=== PATIENT | female | born 1980 | race Caucasian/White ===

== ENCOUNTER 2019-10-28 00:15 | Emergency (ER) | payer OTHER, SELFPAY ==
--- NOTE | ~2019-10-28 | CT_ITS ---
EXAMINATION: CT abdomen pelvis w con DATE: 10/28/2019 02:42 INDICATION: Right mid abdominal pain TECHNIQUE: Computed tomography (CT) of the abdomen and pelvis was performed with 100 mL Omnipaque-350 intravenous contrast. Automated exposure control and iterative reconstruction technique were employe d. The dose-length product was 898.90 mGy-cm. COMPARISON: 12/17/2018 FINDINGS: Mild atelectasis at the inferomedial aspect of the lingula and right middle lobe. Visualized inferior heart is normal. No pericardial or pleural effusion. Cholecystectomy clips the gallbladder fossa. Fo mathew hepatic steatosis at the ligamentum teres. Spleen, pancreas, bilateral adrenal glands and kidneys are normal. Bowels including the appendix are normal. Bladder, retroverted uterus and right ovary ar e normal. Peripheral enhancing rim at a collapsed 1.8 cm corpus luteum cyst in the left ovary. Very s mall amount of likely physiologic free fluid in the cul-de-sac. No pathologically enlarged abdominal or pelvic lymphadenopathy. Severe disc height loss with vacuum phenomena at L5-S1. Mild spondylosis i n the more cephalad lumbar and lower thoracic spine. Chronic mild anterior wedging at T10-T12. IMPRESSION: 1. No acute intra-abdominal/pelvic process. Specifically appendix is normal. Reviewed, dictated and finalized at location A. MAKER
[2019-10-28 01:27] VITALS: BP 134/94; PULSE 81; RESP 16; TEMP 36.7; O2SAT 100
[2019-10-28 01:42] LABS: Basophils Absolute Auto 0.1 K/mm3 (0.0-0.1); Basophils Percent Auto 0.4 % (0.2-1.2); Eosinophils Absolute Auto 0.2 K/mm3 (0-0.3); Eosinophils Percent Auto 1.7 % (0-4.4); Hematocrit 37.9 % (37.0-47.0); Hemoglobin 12.8 g/dL (12.0-15.0); Immature Granulocyte Absolute 0.06 K/mm3 (0.00-0.031); Immature Granulocyte Percent A 0.4 % (0-0.5); Lymphocytes Absolute Auto 4.36 K/mm3 (0.9-3.2); Lymphocytes Percent Auto 31.1 % (18.3-44.2); Mean Corpuscular HGB Conc 33.8 g/dl (32-36); Mean Corpuscular Volume 85.9 fl (80-100); Mean Platelet Volume 10.8 fl (7.4-10.4); Monocytes Absolute Auto 1.2 K/mm3 (0.1-0.6); Monocytes Percent Auto 8.2 % (2.6-8.5); Neutrophils Absolute Auto 8.2 K/mm3 (1.3-6.7); Neutrophils Percent Auto 58.2 % (45.5-73.1); Platelet Count Result 276 k/mm3 (150-375); Red Blood Count 4.41 M/mm3 (4.2-5.4)
[2019-10-28 01:45] LABS: Add Urine Microscopic? NO; Appearance Urine Clear (Clear); Bilirubin Urine Negative (Negative); Blood Urine Negative (Negative); Color Urine Yellow (Yellow); Glucose Urine UA Negative (Negative); Ketones Urine Negative (Negative); Leukocyte Esterase Ur Negative LEU/UL (Negative); Mucus Urine Rare /lpf; Nitrate Urine Negative (Negative); Protein Urine Negative (Negative); RBC Urine 0-2 /hpf (0-2); Squamous Epithelial Cell Urine Moderate /hpf (Few); Urobilinogen Urine Negative mg/dL (<2.0); WBC Urine 0-3 /hpf
[2019-10-28 01:54] LABS: Alanine Aminotransferase 16 U/L (4-35); Albumin Level 4.2 g/dL (3.5-5.1); Alkaline Phosphatase 70 U/L (38-126); Aspartate Amino Transferase 17 U/L (14-36); Bilirubin,Total 0.2 mg/dL (0.2-1.3); Blood Urea Nitrogen 15 mg/dL (7-17); Carbon Dioxide 22 mmol/L (22-30); Chloride 102 mmol/L (98-107); Estimated Glomerular Filt Rate > 60; Glucose 90 mg/dL (65-105); Lipase 219 U/L (23-300); Potassium 4.1 mmol/L (3.4-5.0); Sodium 136 mmol/L (137-145)
--- NOTE | 2019-10-28 02:06 | ED.ABDPAIN ---
HPI - Abdominal Pain General Chief Complaint: Abdominal Pain Stated Complaint: abd pain; ?hernia; N/V/D Time Seen by Provider: 10/28/19 02:02 Source: patient and RN notes reviewed Mode of arrival: ambulatory Limitations: no limitations History of Present Illness HPI narrative: A 38 y/o female presents to the ED with worsening, sharp, RUQ ABD pain for the past 2 days. She reports associated N/V/D. She notes that she has noticed a knot sticking out of her RUQ for the past month. She also notes that bending over aggravates the pain and denies anything alleviating the pain. She also denies any constipation, dysuria, hematuria, urinary frequency, urinary retention, fevers, or chills. MD elicited complaint: abdominal pain Pertinent past history: none Onset (ago): day(s) (2) Pain Consistency: other (worsening) Location: RUQ Quality: sharp Exacerbating factors: other (bending over) Relieving factors: nothing Associated symptoms: nausea, vomiting, diarrhea and other ( knot sticking out of her RUQ) Related Data Allergies Allergy/AdvReac Type Severity Reaction Status Date / Time No Known Allergies Allergy Mild Verified 12/07/12 10:21 Review of Systems Review of Systems: All systems reviewed & are unremarkable except as noted in HPI and below Constitutional: Constitutional: Denies chills and Denies fever(s) Gastrointestinal: Gastrointestinal: Reports abdominal pain (RUQ), Denies constipation, Reports diarrhea, Reports nausea, Reports vomiting and Reports other ( knot sticking out of her RUQ) Genitourinary: Genitourinary: Denies hematuria, Denies nocturia, Denies dysuria and Denies other (urinary retention) PMFSH Past Medical History Medical History (Updated 10/28/19 @ 03:48 by Misha Ohara MD) Chronic back pain Surgical History Surgical History (Updated 10/28/19 @ 02:30 by Edson Moran) History of cholecystectomy Hx of right knee surgery Hx of tubal ligation Social History Social History (Updated 10/28/19 @ 02:30 by Edson Moran) Smoking packs per day: 0.5 Smoking cigarettes per day: 10.0 Smoking status: Current every day smoker Tobacco type: cigarettes Exam Narrative: Exam Narrative: GENERAL: Well-appearing, well-nourished, and in no acute distress. HEAD: Normocephalic, atraumatic. ENT: Mucous membranes moist. CHEST: Clear to auscultation. No respiratory distress. HEART: Regular rate and rhythm. Normal peripheral pulses. ABDOMEN: Soft, mild mid abdominal tenderness in the right side without guarding, no palpable abdominal wall defect, nondistended. EXTREMITIES: Normal range of motion. No edema. SKIN: Warm, dry, no rash. NEURO: Alert and oriented x3. Course Course Emergency Course: Pain improved, informed of results, d/c. Vital Signs Vital signs: Vital Signs Temperature 98.0 F 10/28/19 01:27 Pulse Rate 81 10/28/19 01:27 Respiratory Rate 16 10/28/19 01:27 Blood Pressure 134/94 H 10/28/19 01:27 Pulse Oximetry 100 10/28/19 01:27 Temperature 98.0 F 10/28/19 01:27 Pulse Rate 81 10/28/19 01:27 Respiratory Rate 16 10/28/19 01:27 Blood Pressure 134/94 H 10/28/19 01:27 Pulse Oximetry 100 10/28/19 01:27 MDM - Abdominal Pain Lab Data Result diagrams: 10/28/19 01:30 10/28/19 01:30 Labs: Lab Results 10/28/19 10/28/19 10/28/19 Range/Units 01:30 01:30 01:30 WBC 14.0 H (4.5-10.0) K/mm3 RBC 4.41 (4.2-5.4) M/mm3 Hgb 12.8 (12.0-15.0) g/dL Hct 37.9 (37.0-47.0) % MCV 85.9 (80-100) fl MCH 29.0 (26-34) pg MCHC 33.8 (32-36) g/dl RDW 13.0 (11.5-14.5) % Plt Count 276 (150-375) k/mm3 MPV 10.8 H (7.4-10.4) fl Immature Gran % (Auto) 0.4 (0-0.5) % Neut % (Auto) 58.2 (45.5-73.1) % Lymph % (Auto) 31.1 (18.3-44.2) % [place] % (Auto) 8.2 (2.6-8.5) % Eos % (Auto) 1.7 (0-4.4) % Baso % (Auto) 0.4 (0.2-1.2) % Lymph # (Auto) 4.36 H (0.9-3.2) K/mm3 [place] # (Auto) 1.2
[2019-10-28] MEDS: MORPHINE SULFATE 4 MG/ML INJ IV PUSH (02:23)
[2019-10-28] MEDS: ONDANSETRON INJ 4 MG/2 ML VIAL IV PUSH (02:23)
[2019-10-28] MEDS: SODIUM CHLORIDE 0.9% IV 1,000 ML 999 ML IV CONT (02:23)
[2019-10-28 03:00] VITALS: BP 138/85; PULSE 85; RESP 16; O2SAT 100
== END 2019-10-28 04:08 | disposition home or self-care (01) ==
PROVIDERS: Emergency Provider Emergency Medicine
DX: R10.11 Right upper quadrant pain (principal); F17.210 Nicotine dependence, cigarettes, uncomplicated
CPT/HCPCS: 36415; 74177; 80053; 81003; 81025; 83690; 85025; 96361; 96374; 96375; 99284; J2270; J2405; J7030; Q9967

== ENCOUNTER 2019-11-01 16:34 | Emergency (ER) | payer OTHER, SELFPAY ==
--- NOTE | ~2019-11-01 | CT_ITS ---
EXAMINATION: CT abdomen pelvis w con DATE: 11/01/2019 19:46 INDICATION: Severe right upper abdominal pain. History of cholecystectomy. TECHNIQUE: Computed tomography (CT) of the abdomen and pelvis was performed with 100 cc Omnipaque 350 intravenous contrast. The dose-length product was 798.96 mGy-cm. Automated exposure control and iterative reconstruction technique were employed. COMPARISON: CT dated 10/28/2019 FINDINGS: Lung bases 4 mm left lower lobe nodule. Heart size normal. No significant pleural or perica rdial effusion. Status post cholecystectomy with expected prominence of the common bile duct. The liver, spleen, pancreas, adrenal glands and kidneys are unremarkable. Nonobstructive bowel gas pa ttern. Normal appendix. No abnormal pelvic masses or fluid collections. No free air or free fluid. No significant vascular abnormality. No lymphadenopathy. Moderate spondylosis at L5-S1. Chronic mild an terior wedge shaped appearance to T10-T12. Retroverted uterus. IMPRESSION: 1. No acute abdominal abnormality. 2: 4 mm left lower lobe nodule, likely benign. Consider follow-up CT at 12 months. Reviewed, dictated and finalized at location A. MAKER HELPER IMPRESSION: 1. No acute abdominal abnormality. 2: 4 mm left lower lobe nodule, likely benign. Consider follow-up CT at 12 mon ths.
--- NOTE | ~2019-11-01 | XR_ITS ---
EXAMINATION: XR chest 2V 11/01/2019 19:49 INDICATION: Shortness of breath, nausea and dizziness. PROCEDURE: 2 view chest COMPARISON: No prior studies for comparison. FINDINGS: The lungs are clear. Mild cardiomegaly. There are no pleural effusions. There is no pneumo thorax suspected. IMPRESSION: 1: NO ACUTE CARDIOPULMONARY DISEASE. Reviewed, dictated and finalized at location A. OLOGIC ENGINEER
[2019-11-01 16:43] VITALS: BP 125/86; PULSE 81; RESP 19; TEMP 37; O2SAT 100
--- NOTE | 2019-11-01 16:50 | PC.NURSE ---
PT LEFT TRIAGE BAY AND INFORMED RN THAT SHE WOULD BE OUTSIDE SMOKING IF SHE WAS UP NEXT FOR A ROOM.
[2019-11-01 16:57] LABS: Basophils Absolute Auto 0.1 K/mm3 (0.0-0.1); Basophils Percent Auto 0.4 % (0.2-1.2); Eosinophils Absolute Auto 0.2 K/mm3 (0-0.3); Eosinophils Percent Auto 1.5 % (0-4.4); Hematocrit 41.2 % (37.0-47.0); Hemoglobin 13.7 g/dL (12.0-15.0); Immature Granulocyte Absolute 0.07 K/mm3 (0.00-0.031); Immature Granulocyte Percent A 0.5 % (0-0.5); Lymphocytes Absolute Auto 3.48 K/mm3 (0.9-3.2); Lymphocytes Percent Auto 25.4 % (18.3-44.2); Mean Corpuscular HGB Conc 33.3 g/dl (32-36); Mean Corpuscular Hemoglobin 28.8 pg (26-34); Mean Corpuscular Volume 86.7 fl (80-100); Mean Platelet Volume 10.4 fl (7.4-10.4); Monocytes Absolute Auto 0.8 K/mm3 (0.1-0.6); Monocytes Percent Auto 5.8 % (2.6-8.5); Neutrophils Absolute Auto 9.1 K/mm3 (1.3-6.7); Neutrophils Percent Auto 66.4 % (45.5-73.1); Platelet Count Result 321 k/mm3 (150-375); Red Blood Count 4.75 M/mm3 (4.2-5.4); Red Cell Distribution Width 12.8 % (11.5-14.5); White Blood Count 13.7 K/mm3 (4.5-10.0)
[2019-11-01 17:00] LABS: Add Urine Microscopic? NO; Appearance Urine Clear (Clear); Bilirubin Urine Negative (Negative); Blood Urine Negative (Negative); Color Urine Yellow (Yellow); Glucose Urine UA Negative (Negative); Ketones Urine Negative (Negative); Leukocyte Esterase Ur Negative LEU/UL (Negative); Nitrate Urine Negative (Negative); Protein Urine Negative (Negative); Urobilinogen Urine Negative mg/dL (<2.0)
[2019-11-01 17:12] LABS: Alanine Aminotransferase 18 U/L (4-35); Albumin Level 4.6 g/dL (3.5-5.1); Alkaline Phosphatase 76 U/L (38-126); Aspartate Amino Transferase 19 U/L (14-36); Bilirubin,Total 0.3 mg/dL (0.2-1.3); Blood Urea Nitrogen 11 mg/dL (7-17); Carbon Dioxide 27 mmol/L (22-30); Chloride 100 mmol/L (98-107); Estimated Glomerular Filt Rate > 60; Glucose 126 mg/dL (65-105); Lipase 177 U/L (23-300); Potassium 3.5 mmol/L (3.4-5.0); Sodium 138 mmol/L (137-145)
--- NOTE | 2019-11-01 18:59 | ED.ABDPAIN ---
HPI - Abdominal Pain General Chief Complaint: Abdominal Pain Stated Complaint: Abd pain, sent from pcp Time Seen by Provider: 11/01/19 18:25 Source: patient Mode of arrival: ambulatory Limitations: no limitations History of Present Illness HPI narrative: A 38 y/o female presents to the ED with c/o intermittent epigastric ABD pain that has worsened since onset. Pt states that she started to experience back pain 1.5 months ago that then progressed to her ABD. Pt was seen in the ED on 10/28/2019 for the same complaints and was d/c home after a normal ABD CT scan. Pt followed up with her PCP, Dr. Nguyen, today and he advised her to present to the ED for further evaluation for leukocytosis. Pt also c/o midsternal CP for 2 days. Pt notes that she had a cholecystectomy 1 month ago. Pt has not followed up with a GI specialist. She reports SOB for 2 days, ABD bloating, N/V/D, and smoking 0.5 PPD, but denies sick contacts. Pain Consistency: intermittent Location: epigastric Related Data Allergies Allergy/AdvReac Type Severity Reaction Status Date / Time No Known Allergies Allergy Mild Verified 11/01/19 16:59 Review of Systems Review of Systems: Narrative: CONSTITUTIONAL: Denies fever, chills, or sweats. CARDIOVASCULAR: Reports midsternal CP; Denies palpitations, or edema. RESPIRATORY: Reports SOB; Denies cough GASTROINTESTINAL: Reports intermittent epigastric ABD pain, ABD bloating, nausea, vomiting, diarrhea. MUSCULOSKELETAL: Reports back pain; Denies joint pain, or myalgia. [facility] Past Medical History Medical History Chronic back pain Surgical History Surgical History History of cholecystectomy Hx of right knee surgery Hx of tubal ligation Family History Family History Mother Family history of bipolar disorder Family history of irritable bowel syndrome Father Hypertension Family history of gastrointestinal disorder Social History Social History Smoking packs per day: 0.5 Smoking cigarettes per day: 10.0 Smoking status: Current every day smoker Tobacco type: cigarettes Alcohol intake: current Comments PCP: Dr. Nguyen Exam Narrative: Exam Narrative: GENERAL: Well-appearing, well-nourished, and in no acute distress. HEAD: Normocephalic, atraumatic. NECK: Supple. CHEST: Clear to auscultation. No respiratory distress. No chest wall tenderness. HEART: Regular rate and rhythm. No murmur heard. Normal peripheral pulses. ABDOMEN: Soft, diffuse ABD tenderness greatest in the RUQ and RLQ, nondistended, normal active bowel sounds. EXTREMITIES: Normal range of motion. No edema. SKIN: Warm, dry, no rash. NEURO: No focal deficits. Alert and oriented Course Course Emergency Course: Patient presenting for evaluation of abdominal pain. At the time of initial assessment, ABCs are intact and vital signs are stable. Patient is well-appearing with a nondistended abdomen on exam, but she does have some right upper and right lower quadrant tenderness. Laboratory results are reassuring. Patient does have a mild leukocytosis, but upon review of laboratory test at this facility, she has had this intermittently in the past. Patient without any severe electrolyte abnormalities. No UTI. No evidence of pancreatitis on laboratory testing or imaging. In fact, imaging is very benign. Patient would likely benefit from GI follow-up. This may be gastritis or an ulcer of some point. As for the patient's chest pain which is been present over 2 days and is mild per patient, it does not seem to be anginal in nature. Her chest x-ray and troponin are normal, patient is within an ACS window. Regarding this, I feel patient is safe to follow-up with her primary care provider given her low heart score. Will start patient on PPI, patient is already established
--- NOTE | 2019-11-01 19:08 | ECG_ITS ---
Measurements Intervals [place] Rate: 71 P: AR: 0 QRS: 179 QRSD: 92 T: 125 QT: 395 QTc: 431 Interpretive Statements SINUS RHYTHM LIMB LEAD REVERSAL DELAYED PRECORDIAL R/S TRANSITION BORDERLINE ECG Electronically Signed On 11-01-2019 21:12:05 LAWN MOWER REPAIRER by Navarro Eastman D.O.
[2019-11-01] MEDS: BELLADONNA ALK/PHENOB ELIX 10 ML, MAG HYDROX/ALUMINUM HYD/SIMETH 30 ML, LIDOCAINE HCL 2... PO (19:19)
[2019-11-01] MEDS: MORPHINE SULFATE 4 MG/ML INJ IV PUSH (19:20)
[2019-11-01] MEDS: ONDANSETRON INJ 4 MG/2 ML VIAL IV PUSH (19:21)
[2019-11-01 19:31] LABS: Prothrombin Time 12.7 Seconds (11.1-14.7)
[2019-11-01 19:32] LABS: Partial Thromboplastin Time 32.6 SECONDS (22.3-36.8)
[2019-11-01 20:08] LABS: Troponin I < 0.012 ng/mL (0.000-0.034)
[2019-11-01 20:20] VITALS: BP 120/75; PULSE 79; RESP 18; O2SAT 100
== END 2019-11-01 21:23 | disposition home or self-care (01) ==
PROVIDERS: Emergency Medicine; Emergency Provider Emergency Medicine
DX: K29.70 Gastritis, unspecified, without bleeding (principal); R91.1 Solitary pulmonary nodule; F17.210 Nicotine dependence, cigarettes, uncomplicated; R94.31 Abnormal electrocardiogram [ECG] [EKG]
CPT/HCPCS: 36415; 71046; 74177; 80053; 81003; 81025; 83690; 84484; 85025; 85610; 85730; 93005; 96374; 96375; 99284; A9270; J2270; J2405; Q9967

== ENCOUNTER 2020-09-02 11:40 | Emergency (ER) | payer OTHER, SELFPAY ==
--- NOTE | ~2020-09-02 | XR_ITS ---
EXAMINATION: XR mandible min 4V INDICATION: Left jaw pain after fall TECHNIQUE: Five views of the mandible are obtained. COMPARISON: None available FINDINGS: Bone alignment is normal. There is no fracture. The visualized paranasal sinuses are normal appearance. The soft tissues are unremarkable. IMPRESSION: 1. No displaced fracture identified. Reviewed, dictated and finalized at location A. RICT SALES LEADER
--- NOTE | ~2020-09-02 | CT_ITS ---
EXAMINATION: CT brain wo con EXAM DATE: 09/02/2020 13:25 INDICATION: Fall. Head injury. TECHNIQUE: Spiral CT of the head was performed without contrast. Axial, coronal and sagittal images were reviewed. The dose-length product (DLP) for this examination was 605.33 mGy-cm. The exposure w as tailored according to patient size, and iterative reconstruction (ASIR) was used as additional dos e reduction technique. There is no prior study for comparison. FINDINGS: There is no acute intraparenchymal hemorrhage. No evidence of intraparenchymal brain mass lesion. No evidence of acute infarction. There is no mass effect or midline shift. The ventricles are normal in size. There are no extra-axial collections. There are no acute calvarial fractures. T he orbits are unremarkable. Soft tissue is unremarkable. The visualized sinuses and mastoid air ivy ls are well aerated. IMPRESSION: 1. No acute intracranial findings. Reviewed, dictated and finalized at location B. DELIVERER
[2020-09-02 12:14] VITALS: BP 146/95; PULSE 85; RESP 18; TEMP 36.5; O2SAT 100
[2020-09-02] MEDS: ONDANSETRON HCL ODT 4 MG TABLET PO (12:43)
[2020-09-02] MEDS: HYDROcodone/acetaminophen (*CRX) 5-325 MG TABLET 1 TAB PO (12:44)
--- NOTE | 2020-09-02 15:06 | ED.GENADULT ---
HPI - General Adult General Chief complaint: Unspecified Stated complaint: JAW FRACTURE Time Seen by Provider: 09/02/20 12:32 History of Present Illness HPI narrative: Patient is a 39-year-old female who presents ER with concerns of jaw fracture and head injury. Patient was seen at an urgent care and sent here after having out patient x-ray. She is unable to bring copies of the images. She reports she got up to urinate last night and then fell down some steps. She is unsure if she lost consciousness. She has had soreness of her jaw and she has been feeling nauseous since then. No fevers or chills or sweats. No focal numbness or weakness in arm or leg. No blood thinners. Related Data Allergies Allergy/AdvReac Type Severity Reaction Status Date / Time No Known Allergies Allergy Mild Verified 09/02/20 12:17 Review of Systems Review of Systems: All systems reviewed & are unremarkable except as noted in HPI and below Constitutional: Constitutional: Denies chills, Denies fatigue and Denies fever(s) Eyes: Eyes: Denies blurry vision and Denies diplopia ENT: Comments: No change in hearing. Gastrointestinal: Gastrointestinal: Reports nausea and Denies vomiting PMFSH Past Medical History Medical History (Updated 09/02/20 @ 15:10 by Misha Ohara MD) Chronic back pain Surgical History Surgical History History of cholecystectomy Hx of right knee surgery Hx of tubal ligation Family History Family History Mother Family history of bipolar disorder Family history of irritable bowel syndrome Father Hypertension Family history of gastrointestinal disorder Social History Social History Smoking packs per day: 0.5 Smoking cigarettes per day: 10.0 Smoking status: Current every day smoker Tobacco type: cigarettes Alcohol intake: current Exam Narrative: Exam Narrative: GENERAL: Well-appearing, well-nourished, and in no acute distress. HEAD: Normocephalic, atraumatic. EYES: PERRL and EOMI. ENT: Mucous membranes moist. TMs normal bilaterally. No bleeding intraorally. Patient's teeth align normally. CHEST: Clear to auscultation. No respiratory distress. HEART: Regular rate and rhythm. Normal peripheral pulses. EXTREMITIES: Normal range of motion. No edema. NEURO: Alert and oriented x3. PSYCH: Normal mood and affect. Course Course Emergency Course: Patient informed of results. Discharge home. Vital Signs Vital signs: Vital Signs Temperature 97.7 F 09/02/20 12:14 Pulse Rate 85 09/02/20 12:14 Respiratory Rate 18 09/02/20 12:14 Blood Pressure 146/95 H 09/02/20 12:14 Pulse Oximetry 100 09/02/20 12:14 Temperature 97.7 F 09/02/20 12:14 Pulse Rate 85 09/02/20 12:14 Respiratory Rate 18 09/02/20 12:14 Blood Pressure 146/95 H 09/02/20 12:14 Pulse Oximetry 100 09/02/20 12:14 Medical Decision Making Vital Signs Vital Signs: Vital Signs Temperature 97.7 F 09/02/20 12:14 Pulse Rate 85 09/02/20 12:14 Respiratory Rate 18 09/02/20 12:14 Blood Pressure 146/95 H 09/02/20 12:14 Pulse Oximetry 100 09/02/20 12:14 Temperature 97.7 F 09/02/20 12:14 Pulse Rate 85 09/02/20 12:14 Respiratory Rate 18 09/02/20 12:14 Blood Pressure 146/95 H 09/02/20 12:14 Pulse Oximetry 100 09/02/20 12:14 Imaging Data Radiologist's impression: ITS Impressions Head CT 09/02/20 13:27 IMPRESSION: 1. No acute intracranial findings. Mandible X-Ray 09/02/20 13:37 IMPRESSION: 1. No displaced fracture identified. Discharge Plan Discharge Clinical Impression: Closed head injury, Contusion of jaw Patient Disposition: Home, Self-Care Condition: Stable Instructions: Concussion (ED) Additional Instructions: Return to the ER if you lose consciousness, you cannot keep do
[2020-09-02 15:16] VITALS: BP 145/87; PULSE 75; RESP 18; O2SAT 100
== END 2020-09-02 15:18 | disposition home or self-care (01) ==
PROVIDERS: Emergency Provider Emergency Medicine
DX: S09.90XA Unspecified injury of head, initial encounter (principal); S00.83XA Contusion of other part of head, initial encounter; W10.9XXA Fall (on) (from) unspecified stairs and steps, initial encounter
CPT/HCPCS: 70110; 70450; 99284; A9270

== ENCOUNTER 2021-06-05 10:02 | Emergency (ER) | payer OTHER, SELFPAY ==
[2021-06-05 10:08] VITALS: BP 145/110; PULSE 100; RESP 18; TEMP 36.2; O2SAT 98
[2021-06-05] MEDS: methylPREDNISolone SOD SUCC 125 MG VIAL IM (10:37)
[2021-06-05] MEDS: KETOROLAC (*BKC) 60 MG/2 ML VIAL IM (10:37)
--- NOTE | 2021-06-05 11:09 | ED.GENADULT ---
HPI - General Adult General Chief complaint: Neck Pain/Injury Stated complaint: NECK PAIN Time Seen by Provider: 06/05/21 10:11 Source: patient Mode of arrival: ambulatory Limitations: no limitations History of Present Illness HPI narrative: Patient with history of fall resulting in disc herniation in her lumbar spine in anterior wedging her lower thoracic spine presented with chief complaint of pain in her posterior neck that shoots down to the middle of her back and is also causing some tingling in her fingertips. Patient states that she has an appointment with [facility] neurosurgery on July 02. Patient has been prescribed Flexeril and diclofenac. Patient reports her pain is very intense. Patient states she does not have a primary care at this time. Patient states that she had an MRI which showed these findings at [facility]. Patient denies loss of bowel or bladder function or saddle paresthesias. Patient denies any recent new injuries. Patient reports extreme pain when she attempts to rotate her neck. Related Data Allergies Allergy/AdvReac Type Severity Reaction Status Date / Time No Known Allergies Allergy Mild Verified 06/05/21 10:17 Review of Systems Review of Systems: CONSTITUTIONAL: Denies fever, chills, or sweats. EYES: Denies visual changes, redness, or discharge. ENT: Denies rhinorrhea, congestion, sore throat, or otalgia. CARDIOVASCULAR: Denies chest pain, palpitations, or edema. RESPIRATORY: Denies cough or dyspnea. GASTROINTESTINAL: Denies abdominal pain, nausea, vomiting, or diarrhea. GENITOURINARY: Denies dysuria or hematuria. SKIN: Denies rash or itching. MUSCULOSKELETAL: Reports neck pain denies back pain, joint pain, or myalgia. NEUROLOGIC: Reports tingling denies headache, numbness, dizziness, or weakness. PSYCHIATRIC: Denies anxiety or depression. [facility] Past Medical History Medical History (Updated 06/05/21 @ 11:50 by Jose Luis Washington PA-C) Chronic back pain Surgical History Surgical History History of cholecystectomy Hx of right knee surgery Hx of tubal ligation Family History Family History Mother Family history of bipolar disorder Family history of irritable bowel syndrome Father Hypertension Family history of gastrointestinal disorder Social History Social History Smoking packs per day: 0.5 Smoking cigarettes per day: 10.0 Smoking status: Current every day smoker Tobacco type: cigarettes Alcohol intake: current Exam Narrative: GENERAL: Well-appearing, well-nourished, and in no acute distress. HEAD: Normocephalic, atraumatic. EYES: PERRLA and EOMI. ENT: Nares clear, no rhinorrhea or epistaxis. Mucous membranes moist. Oropharynx without tonsillar hypertrophy exudate or other lesions. Bilateral TMs pearly garcia nonbulging NECK: Supple. No adenopathy or masses. Range of motion painful. Diffuse tenderness to palpation paracervical muscles. No outward signs of acute trauma. Sensation and movement in upper extremities intact. CHEST: Clear to auscultation. No respiratory distress. No wheezes rales or rhonchi HEART: Regular rate and rhythm. No murmur heard. Normal peripheral pulses. EXTREMITIES: Normal range of motion. No edema. SKIN: Warm, dry, no rash. NEURO: No focal deficits. Alert and oriented x3. PSYCH: Normal mood and affect. Course Vital Signs Vital signs: Vital Signs Temperature 97.2 F L 06/05/21 10:08 Pulse Rate 100 06/05/21 10:08 Respiratory Rate 18 06/05/21 10:08 Blood Pressure 145/110 H 06/05/21 10:08 Pulse Oximetry 98 06/05/21 10:08 Temperature 97.2 F L 06/05/21 10:08 Pulse Rate 100 06/05/21 10:08 Respiratory Rate 18 06/05/21 10:08 Blood Pressure 145/110 H 06/05/21 10:08 Pulse Oximetry 98 06/05/21 10:08 Medical Decision Making MDM Narrative Medical deci
[2021-06-05 11:16] VITALS: BP 139/96; PULSE 71; RESP 18; O2SAT 99
[2021-06-05 12:10] VITALS: BP 155/104; PULSE 78; RESP 16; TEMP 36.6; O2SAT 99
== END 2021-06-05 12:12 | disposition home or self-care (01) ==
PROVIDERS: Emergency Provider Family Medicine
DX: M54.12 Radiculopathy, cervical region (principal); M54.14 Radiculopathy, thoracic region; F17.210 Nicotine dependence, cigarettes, uncomplicated
CPT/HCPCS: 96372; 99284; J1885; J2930

== ENCOUNTER 2021-09-22 08:57 | Emergency (ER) | payer OTHER, SELFPAY ==
--- NOTE | ~2021-09-22 | XR_ITS ---
EXAMINATION: XR chest 1V portable DATE: 09/22/2021 09:54 INDICATION: Shortness of breath. TECHNIQUE: A single frontal view of the chest was obtained. COMPARISON: Chest 2 views 11/01/2019, CT abdomen and pelvis 11/01/2019 FINDINGS: The chest demonstrates clear lungs without pneumonia, pleural effusion, or pneumothorax. Th e heart size is normal. There is a prominent left paracardial fat pad. IMPRESSION: 1. No acute cardiopulmonary disease. Reviewed, dictated and finalized at location B. R LAYER HELPER
--- NOTE | ~2021-09-22 | CT_ITS ---
EXAMINATION: CT lumbar spine wo [facility] EXAM DATE: 09/22/2021 10:13 INDICATION: low back pain, paresthesias right leg. Low back pain. TECHNIQUE: Spiral CT of the lumbar spine was performed without contrast. Axial, coronal and sagittal images lumbar spine were reviewed. The dose-length product (DLP) for this examination was 1196.76 m Gy-cm. The exposure was tailored according to patient size (auto mA exposure control), and iterativ e reconstruction (ASIR) was used as additional dose reduction technique. There is no prior study for comparison. FINDINGS: There is moderate to severe L5-S1 disc disease, moderate at L5 3-4, mild to moderate at oth er lumbar levels. There are no acute fractures identified. The vertebral bodies are aligned in the AP dimension. Mild bilateral sacroiliac joint osteoarthritis. There are cholecystectomy clips. Paraspin al soft tissue is unremarkable. Level by level evaluation: T12-L1: Disc does not extend beyond the endplate margin. Facet arthropathy: None. Neural foraminal stenosis: No stenosis. Central canal stenosis: No stenosis. L1-L2: Disc does not extend beyond the endplate margin. Facet arthropathy: Mild. Neural foraminal stenosis: No stenosis. Central canal stenosis: No stenosis. L2-L3: There is a mild diffuse disc bulge. Facet arthropathy: Mild to moderate. Neural foraminal stenosis: No stenosis. Central canal stenosis: Mild. L3-L4: There is a mild diffuse disc bulge. Facet arthropathy: Mild to moderate. Neural foraminal stenosis: Mild right. Central canal stenosis: Mild to moderate. L4-L5: There is a mild to moderate diffuse disc bulge. Facet arthropathy: Moderate. Neural foraminal stenosis: Mild to moderate bilateral. Central canal stenosis: Mild to moderate. L5-S1: There is a mild to moderate diffuse disc bulge. Facet arthropathy: Moderate. Neural foraminal stenosis: Moderate to severe bilateral, left more than right. Central canal stenosis: Mild. IMPRESSION: 1. L5-S1 moderate to severe disc disease and bilateral neural foraminal stenosis. 2. Otherwise mild to moderate lumbar spondylosis. Reviewed, dictated and finalized at location A. ER OPERATOR IMPRESSION: 1. L5-S1 moderate to severe disc disease and bilateral neural foraminal stenos is. 2. Otherwise mild to moderate lumbar spondylosis.
--- NOTE | ~2021-09-22 | CT_ITS ---
EXAMINATION: CTA chest PE protocol EXAM DATE: 09/22/2021 10:56 INDICATION: Midsternal chest pain, SOB, elevated dimer, covid PUI. Vomiting. TECHNIQUE: Spiral CTA of the chest (pulmonary arteries) was performed with 100 cc Omnipaque 350 intr avenous contrast injection. Images were acquired during the pulmonary arterial phase. Coronal maxi mum intensity projection 3D-reconstructions were created by the technologist on dedicated workstation . Axial, coronal and sagittal reformatted images were reviewed. The dose-length product (DLP) for t his examination was 571.10 mGy-cm. The exposure was tailored according to patient size (auto mA exp osure control), and iterative reconstruction (ASIR) was used as additional dose reduction technique. There is no prior study for comparison. FINDINGS: There is suboptimal pulmonary arterial enhancement, but enough contrast to be diagnostic. No evidence of intraluminal filling defects, no pulmonary emboli suspected. No thoracic aortic disse ction. There is 6 mm right lower lobe nodule most likely a granuloma. This appears to be very thin i n shape on the coronal images rather than around. There is 3 mm left lower lobe nodule. No acute airs pace disease identified. There are no pleural or pericardial effusions. Tracheobronchial tree is p atent. There is no mediastinal, hilar or axillary lymphadenopathy. There is no pneumothorax. He art normal in size. No evidence of coronary arterial calcification. Clips in the gallbladder fossa . The bones are unremarkable. IMPRESSION: 1. Suboptimal opacification but no pulmonary emboli suspected. No acute cardiac pulmonary findings. 2. Couple of small nodules most likely granuloma; optional one-year follow-up noncontrast chest CT. Reviewed, dictated and finalized at location A. NOMY PROFESSOR IMPRESSION: 1. Suboptimal opacification but no pulmonary emboli suspected. No acute cardia c pulmonary findings. 2. Couple of small nodules most likely granuloma; optional one-year follow-up noncontrast chest CT.
[2021-09-22 09:13] VITALS: BP 141/116; PULSE 101; RESP 18; TEMP 35.9; O2SAT 100
--- NOTE | 2021-09-22 09:39 | ECG_ITS ---
Measurements Intervals [place] Rate: 82 P: 49 ID: [id number] QRS: -32 QRSD: 101 T: 57 QT: 383 QTc: 447 Interpretive Statements SINUS RHYTHM LEFT AXIS DEVIATION INCOMPLETE RIGHT BUNDLE BRANCH BLOCK BORDERLINE R WAVE PROGRESSION, ANTERIOR LEADS BORDERLINE ECG Electronically Signed On 09-22-2021 11:41:56 PRODUCT SPECIALIST by Navarro Eastman D.O.
--- NOTE | 2021-09-22 09:44 | ED.URI ---
HPI - URI/Sore Throat General Chief Complaint: Upper Respiratory Infection Stated Complaint: cough, maybe fever?? , blood in when blow nose Time Seen by Provider: 09/22/21 09:14 Source: patient Mode of arrival: ambulatory Limitations: no limitations History of Present Illness HPI Narrative: This is a 40 year old female that presents to the ER for cold symptoms present x 3 days. Reports cough, rhinorrhea, sneezing, fatigue, shortness of breath, and chest tightness. She is COVID vaccinated, but not yet boosted. She also reports she has had worsening low back pain over the last 2 weeks. Reports she has had paresthesias in the right leg. Also reports bladder incontinence. No recent injuries or trauma. Reports she has suffered with herniated disc for some time. She has not been able to see a spine surgeon yet. Denies fever, saddle anesthesia, weakness, numbness, or bowel incontinence. Related Data Allergies Allergy/AdvReac Type Severity Reaction Status Date / Time No Known Allergies Allergy Mild Verified 06/05/21 10:17 Review of Systems Review of Systems: CONSTITUTIONAL: Denies fever CARDIOVASCULAR: Reports chest pain. Denies edema. RESPIRATORY: Reports cough and dyspnea. SKIN: Denies rash MUSCULOSKELETAL: Reports back pain, joint pain, and myalgia. NEUROLOGIC: Denies numbness, or weakness. All systems reviewed & are unremarkable except as noted in HPI and below PMFSH Past Medical History Medical History (Updated 09/22/21 @ 14:33 by Soco Corona PA-C) Chronic back pain Surgical History Surgical History History of cholecystectomy Hx of right knee surgery Hx of tubal ligation Family History Family History Mother Family history of bipolar disorder Family history of irritable bowel syndrome Father Hypertension Family history of gastrointestinal disorder Social History Social History (Updated 09/22/21 @ 09:49 by Soco Corona PA-C) Smoking packs per day: 0.5 Smoking cigarettes per day: 10.0 Smoking status: Current every day smoker Tobacco type: cigarettes Alcohol intake: current Substance use: never Exam Narrative: GENERAL: Well-appearing, well-nourished, and in no acute distress. HEAD: Normocephalic, atraumatic. EYES: EOMI. ENT: Nares clear, no rhinorrhea or epistaxis. Mucous membranes moist. Oropharynx without tonsillar hypertrophy exudate or other lesions. Bilateral TMs pearly garcia non-bulging NECK: Supple. No adenopathy or masses. CHEST: Clear to auscultation. No respiratory distress. No wheezes rales or rhonchi HEART: Regular rate and rhythm. No murmur heard. Normal peripheral pulses. BACK: No midline spinal tenderness EXTREMITIES: Normal range of motion. No edema. Strength equal in bilateral lower extremities (5/5). Normal patellar reflexes bilaterally SKIN: Warm, dry, no rash. NEURO: No focal deficits. Alert and oriented x3. Normal gait PSYCH: Normal mood and affect Course Vital Signs Vital signs: Vital Signs Temperature 96.6 F L 09/22/21 09:13 Pulse Rate 101 H 09/22/21 09:13 Respiratory Rate 18 09/22/21 09:13 Blood Pressure 141/116 H 09/22/21 09:13 Pulse Oximetry 100 09/22/21 09:13 Temperature 96.6 F L 09/22/21 09:13 Pulse Rate 63 09/22/21 12:06 Respiratory Rate 14 09/22/21 12:06 Blood Pressure 123/74 09/22/21 12:06 Pulse Oximetry 98 09/22/21 12:06 MDM - URI/Sore Throat MDM Narrative Medical decision making narrative: Patient presents to the emergency department for cold symptoms ongoing over the last couple of days. Also reporting low back pain. She is afebrile and nontoxic-appearing. Her vitals are stable. CBC and metabolic panel without concerning findings. Influenza screen is negative. SARS-CoV-2 was sent. Chest x-ray without acute cardiopulmonary abnormality. EKG without concerning ST changes. Baseline troponin is negative. D
[2021-09-22 10:07] LABS: Prothrombin Time 12.8 Seconds (11.1-14.7)
[2021-09-22 10:08] LABS: Partial Thromboplastin Time 31.6 SECONDS (22.3-36.8)
--- NOTE | 2021-09-22 10:08 | PC.NURSE ---
pt to CT at this time.
[2021-09-22 10:10] LABS: Anion Gap 9 mmol/L (8-16); Blood Urea Nitrogen 9 mg/dL (7-17); Calcium 8.9 mg/dL (8.4-10.2); Carbon Dioxide 25 mmol/L (22-30); Chloride 102 mmol/L (98-107); D Dimer 0.59 ug/mL (<0.48); Estimated CRCL calculation 110 ml/min; Estimated Glomerular Filt Rate > 60; Glucose 99 mg/dL (65-110); Potassium 3.9 mmol/L (3.4-5.0); Sodium 136 mmol/L (137-145)
[2021-09-22 10:12] LABS: CRP 2.3 mg/dL (<1.0)
[2021-09-22 10:21] LABS: Troponin I < 0.012 ng/mL (0.000-0.034)
[2021-09-22 10:28] LABS: Basophils Percent Auto 0.4 % (0.2-1.2); Eosinophils Percent Auto 0.4 % (0-4.4); Hemoglobin 12.9 g/dL (12.0-15.0); Immature Granulocyte Absolute 0.09 K/mm3 (0.00-0.031); Immature Granulocyte Percent A 1.2 % (0-0.5); Lymphocytes Absolute Auto 1.71 K/mm3 (0.9-3.2); Lymphocytes Percent Auto 23.6 % (18.3-44.2); Mean Corpuscular HGB Conc 33.1 g/dl (32-36); Mean Corpuscular Hemoglobin 28.2 pg (26-34); Mean Corpuscular Volume 85.2 fl (80-100); Mean Platelet Volume 10.6 fl (7.4-10.4); Monocytes Absolute Auto 1.2 K/mm3 (0.1-0.6); Monocytes Percent Auto 16.5 % (2.6-8.5); Neutrophils Absolute Auto 4.2 K/mm3 (1.3-6.7); Neutrophils Percent Auto 57.9 % (45.5-73.1); Platelet Count Result 226 k/mm3 (150-375); Red Blood Count 4.58 M/mm3 (4.2-5.4); Red Cell Distribution Width 13.6 % (11.5-14.5); White Blood Count 7.3 K/mm3 (4.5-10.0)
[2021-09-22] MEDS: KETOROLAC 30 MG/ML VIAL (*BKC) IV PUSH (10:35)
[2021-09-22] MEDS: ACETAMINOPHEN 500 MG TABLET 1000 MG PO (10:36)
[2021-09-22 12:06] VITALS: BP 123/74; PULSE 63; RESP 14; O2SAT 98
[2021-09-22 14:37] VITALS: BP 142/84; PULSE 88; RESP 16; O2SAT 99
[2021-09-22 20:23] LABS: SARS-CoV-2 RNA PCR Positive
== END 2021-09-22 14:38 | disposition left against medical advice (07) ==
PROVIDERS: Physician Assistant; Emergency Provider Emergency Medicine
DX: U07.1 COVID-19 (principal); M47.816 Spondylosis without myelopathy or radiculopathy, lumbar region; R91.8 Other nonspecific abnormal finding of lung field; F17.210 Nicotine dependence, cigarettes, uncomplicated; M51.9 Unspecified thoracic, thoracolumbar and lumbosacral intervertebral disc disorder; M48.07 Spinal stenosis, lumbosacral region; I45.10 Unspecified right bundle-branch block; R94.31 Abnormal electrocardiogram [ECG] [EKG]
CPT/HCPCS: 36415; 71045; 71275; 72131; 80048; 81025; 84484; 85025; 85380; 85610; 85730; 86140; 87804; 93005; 96374; 99284; A9270; C9803; J1885; Q9967; U0003; U0005

== ENCOUNTER 2022-05-02 15:46 | Emergency (ER) | payer OTHER, SELFPAY ==
[2022-05-02 15:50] VITALS: BP 142/106; PULSE 105; RESP 16; TEMP 36.2; O2SAT 100
[2022-05-02 16:46] VITALS: BP 135/103; O2SAT 100
[2022-05-02 17:00] VITALS: O2SAT 97
[2022-05-02 17:15] VITALS: O2SAT 98
--- NOTE | 2022-05-02 17:16 | ED.GENADULT ---
HPI - General Adult General Chief complaint: Unspecified Stated complaint: reports she tried to give plasma and blood clotted Time Seen by Provider: 05/02/22 16:30 History of Present Illness HPI narrative: 41-year-old female presenting with consider twice now and having them tell her that her blood was clotting very quickly. She has never had clotting disorder in the past, states that she has also been feeling intermittently lightheaded for the past 2 weeks but currently feeling fine. Related Data Allergies Allergy/AdvReac Type Severity Reaction Status Date / Time No Known Allergies Allergy Mild Verified 05/02/22 16:31 Review of Systems Review of Systems: CONST: No fever. HEENT: No sore throat C/V: No chest pain RESP: No cough GI: no abdominal pain : No dysuria. M/S: Chronic back pain SKIN: No rash. NEURO: Occasional lightheadedness without focal numbness or weakness PSYCH: [No depression] PMFSH Past Medical History Medical History (Updated 05/02/22 @ 19:01 by Juanita Smith MD) Chronic back pain Surgical History Surgical History History of cholecystectomy Hx of right knee surgery Hx of tubal ligation Family History Family History Mother Family history of bipolar disorder Family history of irritable bowel syndrome Father Hypertension Family history of gastrointestinal disorder Social History Social History Smoking packs per day: 0.5 Smoking cigarettes per day: 10.0 Smoking status: Current every day smoker Tobacco type: cigarettes Alcohol intake: current Substance use: never Exam Narrative: EXAMINATION OF ORGAN SYSTEMS/BODY AREAS: Constitutional: Vital signs per nursing GENERAL:[No acute distress, non-toxic appearing.] HEAD: Normal with no signs of head trauma. EYES: EOMI, conjunctiva normal ENT: Hearing grossly intact LUNGS: Nonlabored breathing. HEART: [Regular rate and rhythm] ABD: [Soft], [nontender to palpation] EXT: Normal range of motion SKIN: [No rashes or lesions.] NEURO: [Alert and oriented x 3. No gross focal sensory or strength deficits.] PSYCH: Normal affect Course Vital Signs Vital signs: Vital Signs Temperature 97.2 F L 05/02/22 15:50 Pulse Rate 105 H 05/02/22 15:50 Respiratory Rate 16 05/02/22 15:50 Blood Pressure 142/106 H 05/02/22 15:50 Pulse Oximetry 100 05/02/22 15:50 Temperature 97.2 F L 05/02/22 15:50 Pulse Rate 105 H 05/02/22 15:50 Respiratory Rate 16 05/02/22 15:50 Blood Pressure 142/106 H 05/02/22 15:50 Pulse Oximetry 100 05/02/22 15:50 Medical Decision Making MDM Narrative Medical decision making narrative: 41-year-old female presenting with possible clotting issue, vital signs stable, on exam she is well-appearing no apparent distress, differential include anemia, clotting disorder, less likely DVT without any other extremity pain or swelling. Our techs here were able to draw blood without any issues, and coags and CBC here were normal. Patient is well-appearing and stable for discharge at this time, she is given follow-up to hematology if further work-up is necessary. Vital Signs Vital Signs: Vital Signs Temperature 97.2 F L 05/02/22 15:50 Pulse Rate 105 H 05/02/22 15:50 Respiratory Rate 16 05/02/22 15:50 Blood Pressure 142/106 H 05/02/22 15:50 Pulse Oximetry 100 05/02/22 15:50 Temperature 97.2 F L 05/02/22 15:50 Pulse Rate 105 H 05/02/22 15:50 Respiratory Rate 16 05/02/22 15:50 Blood Pressure 142/106 H 05/02/22 15:50 Pulse Oximetry 100 05/02/22 15:50 Lab Data Result diagrams: 05/02/22 17:27 05/02/22 17:27 Labs: Lab Results 05/02/22 05/02/22 05/02/22 Range/Units 17:27 17:27 17:27 WBC 16.3 H (4.5-10.0) K/mm3 RBC 4.35 (4.2-5.4) M/mm3 Hgb 12.5 (12.0-15.0) g/dL H
[2022-05-02 17:31] VITALS: O2SAT 96
[2022-05-02 17:42] LABS: Basophils Absolute Auto 0.1 K/mm3 (0.0-0.1); Basophils Percent Auto 0.4 % (0.2-1.2); Eosinophils Absolute Auto 0.4 K/mm3 (0-0.3); Eosinophils Percent Auto 2.4 % (0-4.4); Hematocrit 37.5 % (37.0-47.0); Hemoglobin 12.5 g/dL (12.0-15.0); Immature Granulocyte Absolute 0.12 K/mm3 (0.00-0.031); Immature Granulocyte Percent A 0.7 % (0-0.5); Lymphocytes Absolute Auto 4.53 K/mm3 (0.9-3.2); Lymphocytes Percent Auto 27.8 % (18.3-44.2); Mean Corpuscular HGB Conc 33.3 g/dl (32-36); Mean Corpuscular Hemoglobin 28.7 pg (26-34); Mean Corpuscular Volume 86.2 fl (80-100); Mean Platelet Volume 10.2 fl (7.4-10.4); Monocytes Absolute Auto 1.1 K/mm3 (0.1-0.6); Monocytes Percent Auto 6.6 % (2.6-8.5); Neutrophils Absolute Auto 10.1 K/mm3 (1.3-6.7); Neutrophils Percent Auto 62.1 % (45.5-73.1); Platelet Count Result 265 k/mm3 (150-375); Red Blood Count 4.35 M/mm3 (4.2-5.4); Red Cell Distribution Width 13.8 % (11.5-14.5); White Blood Count 16.3 K/mm3 (4.5-10.0)
[2022-05-02 17:55] LABS: Alanine Aminotransferase 19 U/L (6-35); Albumin Level 3.9 g/dL (3.5-5.1); Alkaline Phosphatase 66 U/L (38-126); Anion Gap 10 mmol/L (8-16); Aspartate Amino Transferase 18 U/L (14-36); Bilirubin,Total 0.1 mg/dL (0.2-1.3); Blood Urea Nitrogen 11 mg/dL (7-17); Calcium 8.3 mg/dL (8.4-10.2); Carbon Dioxide 27 mmol/L (22-30); Chloride 101 mmol/L (98-107); Estimated CRCL calculation 100 ml/min; Estimated Glomerular Filt Rate > 60; Glucose 106 mg/dL (65-110); INR 1.1; Partial Thromboplastin Time 29.4 SECONDS (22.3-36.8); Potassium 3.4 mmol/L (3.4-5.0); Prothrombin Time 13.3 Seconds (11.1-14.7); Sodium 138 mmol/L (137-145)
[2022-05-02 19:05] VITALS: BP 129/90; PULSE 74; RESP 18; O2SAT 98
== END 2022-05-02 19:07 | disposition home or self-care (01) ==
PROVIDERS: Emergency Medicine; Emergency Provider Emergency Medicine
DX: D68.9 Coagulation defect, unspecified (principal)
CPT/HCPCS: 36415; 80053; 85025; 85610; 85730; 99283

== ENCOUNTER 2022-08-10 08:21 | Emergency (ER) | payer OTHER, SELFPAY ==
[2022-08-10 09:00] VITALS: BP 120/83; PULSE 103; RESP 18; TEMP 37.1; O2SAT 100
--- NOTE | 2022-08-10 09:12 | PC.NURSE ---
pt verbalized that she did not have no time to be waiting 4-5 hours for no er visit. im just going to an urgent care.
== END 2022-08-10 09:23 | disposition left against medical advice (07) ==
LOC: ANHED 09:17
DX: J34.89 Other specified disorders of nose and nasal sinuses (principal)
CPT/HCPCS: 99199

== ENCOUNTER 2023-01-29 01:30 | Emergency (ER) | payer OTHER, SELFPAY ==
--- NOTE | ~2023-01-29 | CT_ITS ---
Noncontrast CT scan of the lumbar spine CLINICAL HISTORY: Back pain TECHNIQUE: Axial noncontrast imaging of the lumbar spine was performed. Sagittal and coronal reformat arlyn images were constructed. Dose reduction technique was used on this scan by utilizing automated ex posure control and iterative reconstruction technique. The dose-length product (DLP) was 1275.17 mGy- cm. COMPARISON: 09/22/2021 FINDINGS: There is no fracture or subluxation of the lumbar spine. There is advanced degenerative dis c narrowing at L3-L4 and L5-S1. Remaining disc spaces are relatively well-preserved. At L1-L2, there is no significant disc bulge or herniation. No spinal canal stenosis or definite neur al foraminal narrowing. At L2-L3, there is minimal disc bulge. No definite spinal canal stenosis or neural foraminal narrowin g. At L3-L4, there is disc bulge and mild facet arthropathy. Possible mild central canal stenosis. There is probable mild bilateral neural foraminal narrowing. At L4-L5, there is mild disc bulge and mild facet hypertrophy. Possible minimal central canal stenosi s. There is probable moderate bilateral neural foraminal narrowing. At L5-S1, there is mild disc bulge. There is mild facet arthropathy. No definite central canal stenos is. There is severe bilateral neural foraminal narrowing. Paravertebral soft tissues are unremarkable. Mild right hydronephrosis incidentally noted. Impression: Mild right hydroureteronephrosis is incidentally noted. UVJ is not completely imaged. Consider right UVJ stone. Consider dedicated abdominal pelvic CT to further evaluate as indicated. Possible multifactorial mild central canal stenosis at L3-L4 and L4-L5. Severe bilateral neural foraminal narrowing at L5-S1. Probable moderate bilateral neural foraminal narrowing at L4-L5. Reviewed, dictated and finalized at location . Impression: Mild right hydroureteronephrosis is incidentally noted. UVJ is not completely i francesco. Consider right UVJ stone. Consider dedicated abdominal pelvic CT to furt her evaluate as indicated. Possible multifactorial mild central canal stenosis at L3-L4 and L4-L5. Severe bilateral neural foraminal narrowing at L5-S1. Probable moderate bilateral neural foraminal narrowing at L4-L5.
[2023-01-29 01:32] VITALS: BP 143/105; PULSE 94; RESP 20; TEMP 36.2; O2SAT 99
[2023-01-29] MEDS: HYDROmorphone HCL INJ (*CRX) 1 MG/ML SYR IM (02:56)
[2023-01-29] MEDS: KETOROLAC 30 MG/ML VIAL (*BKC) IM (02:57)
[2023-01-29] MEDS: ORPHENADRINE CITRATE 100 MG TABLET.ER PO (02:58)
[2023-01-29 03:09] LABS: Appearance Urine Clear (Clear); Bacteria Urine None Seen /hpf; Bilirubin Urine Negative (Negative); Blood Urine 2+ (Negative); Color Urine Yellow (Yellow); Glucose Urine UA Negative (Negative); Ketones Urine Negative (Negative); Leukocyte Esterase Ur 1+ LEU/UL (Negative); Nitrate Urine Negative (Negative); Non Pathogenic Casts 0-2; Protein Urine Trace mg/dL (Negative); RBC Urine 21-50 /hpf (0-2); Specific Grav Ur 1.011 (1.001-1.035); Squamous Epithelial Cell Urine None seen /hpf (Few); WBC Urine 21-50 /hpf
[2023-01-29 03:15] LABS: Add Urine Microscopic? YES
[2023-01-29 03:43] LABS: Pregnancy On Board Control Positive; Urine Pregnancy Test Negative
[2023-01-29 04:00] VITALS: BP 130/74; PULSE 80; RESP 19; O2SAT 99
--- NOTE | 2023-01-29 04:03 | ED.GENADULT ---
HPI - General Adult General Chief complaint: Back Pain/Injury Stated complaint: low back pain , hx herniated discs Time Seen by Provider: 01/29/23 02:05 History of Present Illness HPI narrative: Patient 42-year-old female presents emergency department with chief complaint of back pain. The patient reports she has history of chronic back pain and reports that she recently did some additional activity and started having pain in her lumbar region reports it radiates down her right gluteal region. The patient states she had some paresthesias in that area reports has been seen in the [place] emergency department and was started on all low-dose of anti-inflammatory steroid and muscle relaxer. The patient states she still having severe pain today reports that she has had some issues with making it to the bathroom in time but still had sensation in her perineal area denies foot drop. Related Data Home Medications Medication Instructions Recorded Confirmed diclofenac sodium 50 mg mg PO 08/10/22 tablet,delayed release methocarbamol 750 mg tablet mg 08/10/22 Allergies Allergy/AdvReac Type Severity Reaction Status Date / Time No Known Allergies Allergy Mild Verified 08/10/22 09:01 Review of Systems Review of Systems: A 10 system review of systems was completed on the patient and is negative except for what is stated in the HPI. Nursing and ancillary documentation was reviewed. [facility] Past Medical History Medical History (Updated 01/29/23 @ 04:07 by Michele Bryan MD) Chronic back pain Surgical History Surgical History History of cholecystectomy Hx of right knee surgery Hx of tubal ligation Family History Family History Mother Family history of bipolar disorder Family history of irritable bowel syndrome Father Hypertension Family history of gastrointestinal disorder Social History Social History Smoking packs per day: 0.5 Smoking cigarettes per day: 10.0 Smoking status: Current every day smoker Tobacco type: cigarettes Alcohol intake: current Substance use: never Exam Narrative: GENERAL: Well-appearing, well-nourished, and in no acute distress. HEAD: Normocephalic, atraumatic. EYES: PERRLA and EOMI. ENT: Nares clear, no rhinorrhea or epistaxis. Mucous membranes moist. NECK: Supple. CHEST: Clear to auscultation. No respiratory distress. HEART: Regular rate and rhythm. No murmur heard. Normal peripheral pulses. ABDOMEN: Soft, nontender, nondistended, normal active bowel sounds. EXTREMITIES: Normal range of motion. No edema. SKIN: Warm, dry, no rash. NEURO: No focal deficits. Alert and oriented x3. No saddle anesthesia, no foot drop PSYCH: Normal mood and affect. Course Vital Signs Vital signs: Vital Signs Temperature 36.2 C L 01/29/23 01:32 Pulse Rate 94 01/29/23 01:32 Respiratory Rate 20 01/29/23 01:32 Blood Pressure 143/105 H 01/29/23 01:32 Pulse Oximetry 99 01/29/23 01:32 Oxygen Delivery Room Air 01/29/23 01:32 Temperature 36.2 C L 01/29/23 01:32 Pulse Rate 94 01/29/23 01:32 Respiratory Rate 20 01/29/23 01:32 Blood Pressure 143/105 H 01/29/23 01:32 Pulse Oximetry 99 01/29/23 01:32 Oxygen Delivery Room Air 01/29/23 01:32 Medical Decision Making MDM Narrative Medical decision making narrative: Differential diagnoses include sciatica, lumbar radiculopathy, lumbar strain, degenerative disc disease, cauda equina The patient is not having saddle anesthesia, no foot drop. Patient's pain was controlled she was able to ambulate without difficulty CT scan of the lumbar spine was ordered and results are currently still pending After receiving pain medications the patient is feeling back to her baseline and would like to g
--- NOTE | 2023-01-29 05:58 | PC.NURSE ---
attempted to call patient with results from CT report. number in chart has been disconnected
== END 2023-01-29 04:00 | disposition home or self-care (01) ==
PROVIDERS: Emergency Provider Emergency Medicine
DX: S39.012A Strain of muscle, fascia and tendon of lower back, initial encounter (principal); M54.16 Radiculopathy, lumbar region; M54.41 Lumbago with sciatica, right side; G89.29 Other chronic pain; F17.210 Nicotine dependence, cigarettes, uncomplicated; Z90.49 Acquired absence of other specified parts of digestive tract; X50.9XXA Other and unspecified overexertion or strenuous movements or postures, initial encounter
CPT/HCPCS: 72131; 81001; 81025; 87077; 87086; 87186; 96372; 99284; A9270; J1100; J1170; J1885

== ENCOUNTER 2023-04-13 10:24 | Emergency (ER) | payer OTHER, SELFPAY ==
[2023-04-13 10:30] VITALS: BP 144/107; PULSE 75; RESP 18; TEMP 37; O2SAT 100
[2023-04-13] MEDS: diazePAM (*CRX) 5 MG TABLET PO (10:49)
[2023-04-13] MEDS: fentaNYL CITRATE INJ (*CRX) 100 MCG/2 ML VIAL 50 MCG IM (10:50)
--- NOTE | 2023-04-13 10:53 | ED.BACK ---
HPI - Back Pain/Injury General Chief Complaint: Back Pain/Injury Stated Complaint: back pain Time Seen by Provider: 04/13/23 10:34 History of Present Illness HPI Narrative: Pt presents with left sided mid back pain for a week or so. Pt seen at [place] [facility] for same and got NSAID and muslce relaxer which have not improved her symptoms. Pt denies injury or urinary complaints. Pt denies numbness or weakness. Related Data Home Medications Medication Instructions Recorded Confirmed diclofenac sodium 50 mg mg PO 08/10/22 tablet,delayed release methocarbamol 750 mg tablet mg 08/10/22 Allergies Allergy/AdvReac Type Severity Reaction Status Date / Time No Known Allergies Allergy Mild Verified 04/13/23 10:25 Review of Systems Review of Systems: All systems reviewed & are unremarkable except as noted in HPI and below PMFSH Past Medical History Medical History (Updated 04/13/23 @ 12:07 by Denisse Taylor III, DO) Chronic back pain Surgical History Surgical History History of cholecystectomy Hx of right knee surgery Hx of tubal ligation Family History Family History Mother Family history of bipolar disorder Family history of irritable bowel syndrome Father Hypertension Family history of gastrointestinal disorder Social History Social History Smoking packs per day: 0.5 Smoking cigarettes per day: 10.0 Smoking status: Current every day smoker Tobacco type: cigarettes Alcohol intake: current Substance use: never Exam Const: General: healthy appearing Nutritional Appearance: well nourished Orientation/consciousness: patient oriented x3 Limitations: no limitations Resp: Effort & Inspection: normal respiratory effort Auscultation: clear to auscultation bilaterally Cardio: Rate: regular rate Rhythm: regular rhythm GI: GI Palp: Yes Soft to palpation Auscultation: normal bowel sounds Back/Spine/Pelvis: Other: tender with spasm on left paraspinous muscles t spine Skin: General skin exam: normal color Rashes: no rashes Wounds: no wounds Neuro: General: patient oriented x3 and moves all extremities Speech: normal speech Gait exam (Neuro): Normal gait present Extrem: General: normal to inspection and no clubbing, cyanosis or edema Psych: Mental Status: mental status grossly normal Affect: normal affect Attitude: cooperative Course Vital Signs Vital signs: Vital Signs Temperature 98.6 F 04/13/23 10:30 Pulse Rate 75 04/13/23 10:30 Respiratory Rate 18 04/13/23 10:30 Blood Pressure 144/107 H 04/13/23 10:30 Pulse Oximetry 100 04/13/23 10:30 Oxygen Delivery Room Air 04/13/23 10:30 Temperature 98.1 F 04/13/23 10:55 Pulse Rate 64 04/13/23 10:55 Respiratory Rate 20 04/13/23 10:55 Blood Pressure 155/89 H 04/13/23 10:55 Pulse Oximetry 99 04/13/23 10:55 Oxygen Delivery Room Air 04/13/23 10:30 MDM - Back Pain/Injury MDM Narrative Medical decision making narrative: seems like clotilde muclular, will give valium and fentanyl shot and see if she improves. woke p up on cart, said she was still in pain. seems to be fairly comfortable. will discharge home on meds. Discharge Plan Discharge Clinical Impression: Strain of muscle at thorax level Patient Disposition: Home, Self-Care Condition: Improved Instructions: Antibiotic Form, Back Pain (ED) Prescriptions: New hydrocodone-acetaminophen 5-325 mg tablet 1 tablet PO Q6H PRN (Reason: pain) Qty: 14 0RF diazepam [Valium] 5 mg tablet 5 mg PO TID PRN (Reason: muscle spasm) Qty: 10 0RF No Action simethicone 125 mg capsule 125 mg PO QID Qty: 20 0RF Rx Instructions: administer after meals and at bedtime dicyclomine 20 mg tablet 20 mg PO QID Qty: 20 0RF
[2023-04-13 10:55] VITALS: BP 155/89; PULSE 64; RESP 20; TEMP 36.7; O2SAT 99
== END 2023-04-13 12:21 | disposition home or self-care (01) ==
PROVIDERS: Emergency Provider Emergency Medicine
DX: S29.012A Strain of muscle and tendon of back wall of thorax, initial encounter (principal); F17.210 Nicotine dependence, cigarettes, uncomplicated; X58.XXXA Exposure to other specified factors, initial encounter
CPT/HCPCS: 96372; 99283; A9270; J3010

== ENCOUNTER 2023-05-15 20:08 | Emergency (ER) | payer OTHER, SELFPAY ==
--- NOTE | ~2023-05-15 | XR_ITS ---
Portable chest x-ray Comparison: 09/22/2021 Clinical History: Cough Findings: There is probable focal atelectasis or scarring at the right upper lobe region. Left lung clear. Cardiomediastinal silhouette is stable. Bones and soft tissues are unremarkable. Impression: Probable linear atelectasis or scarring right upper lobe region. Otherwise clear lungs. Reviewed, dictated and finalized at location . Impression: Probable linear atelectasis or scarring right upper lobe region. Otherwise speedy r lungs.
--- NOTE | ~2023-05-15 | CT_ITS ---
EXAMINATION: CT brain wo con INDICATION: Headache COMPARISON: 09/02/2020 TECHNIQUE: Standard unenhanced head CT. The dose-length product (DLP) was 605.33 mGy-cm. The mA was a djusted according to patient size. Iterative reconstruction technique was employed. FINDINGS: No intracranial hemorrhage, acute infarction, or abnormal mass lesion. The ventricles are n ormal. No abnormal mass effect or midline shift. The garcia-white matter differentiation is normal. The basal cisterns are patent. The orbits are normal. The paranasal sinuses, mastoids and calvarium are normal. IMPRESSION: 1. No acute intracranial abnormality. Reviewed, dictated and finalized at location A.
--- NOTE | ~2023-05-15 | CT_ITS ---
EXAMINATION: CT abdomen pelvis w con INDICATION: Abdominal pain, nausea and vomiting TECHNIQUE: Computed tomographic images of the abdomen and pelvis were obtained after the administrati on of 100 cc of Omnipaque 350 intravenous contrast. The dose-length product (DLP) was 1486.82 mGy-cm. Automated exposure control and iterative reconstruction technique were employed. COMPARISON: 11/01/2019 FINDINGS: Minimal dependent atelectasis is present in the lung bases. The heart size is normal. Stabl e small nodules of the visualized lung bases are consistent with old granulomatous disease. There are changes of cholecystectomy. The liver, spleen, pancreas, and adrenal glands are normal. The kidneys are unremarkable. The appendix is normal. No pathologically enlarged abdominal or pelvic lymph nodes are identified. No free intraperitoneal gas or evidence of bowel obstruction. There is a 4.1 cm cyst of the right ovary. A corpus luteum is noted in the right ovary. There is a right inguinal hernia con taining fat. There is moderate lumbar spondylosis. IMPRESSION: 1. No CT correlate for the patient's symptoms. Reviewed, dictated and finalized at location A.
[2023-05-15 20:13] VITALS: BP 133/67; PULSE 95; RESP 16; TEMP 36.3; O2SAT 99
--- NOTE | 2023-05-15 20:44 | ED.NAVMDI ---
HPI - Nausea/Vomiting/Diarrhea General Chief complaint: Nausea/Vomiting/Diarrhea Stated complaint: vomiting, headache Time Seen by Provider: 05/15/23 20:27 History of Present Illness HPI Narrative: 42-year-old female reports for evaluation for abdominal pain, nausea, vomiting, diarrhea, headache and a cough since yesterday. She denies fever, body aches, chills, chest pain or shortness of breath, dysuria or hematuria, melena or hematochezia, neck pain. She does report that her daughter has been sick with a viral illness recently. She denies a history of a headache. States her headache is currently an 11 out of 10. Related Data Home Medications Medication Instructions Recorded Confirmed diclofenac sodium 50 mg mg PO 08/10/22 tablet,delayed release methocarbamol 750 mg tablet mg 08/10/22 Allergies Allergy/AdvReac Type Severity Reaction Status Date / Time No Known Allergies Allergy Mild Verified 04/13/23 10:25 Review of Systems Review of Systems: CONSTITUTIONAL: Denies fever, chills EYES: Denies visual changes, redness, or discharge. ENT: Denies rhinorrhea, congestion, sore throat, or otalgia. CARDIOVASCULAR: Denies chest pain, palpitations, or edema. RESPIRATORY: See HPI GASTROINTESTINAL: See HPI GENITOURINARY: Denies dysuria or hematuria. SKIN: Denies rash or itching. MUSCULOSKELETAL: Denies back pain, joint pain, or myalgia. NEUROLOGIC: See HPI PSYCHIATRIC: Denies anxiety or depression. [facility] Past Medical History Medical History Chronic back pain Surgical History Surgical History History of cholecystectomy Hx of right knee surgery Hx of tubal ligation Family History Family History Mother Family history of bipolar disorder Family history of irritable bowel syndrome Father Hypertension Family history of gastrointestinal disorder Social History Social History Smoking packs per day: 0.5 Smoking cigarettes per day: 10.0 Smoking status: Current every day smoker Tobacco type: cigarettes Alcohol intake: current Substance use: never Exam Narrative: GENERAL: Well-appearing, in no acute distress. Patient resting in exam bed. She is pleasant and conversational. HEAD: Normocephalic EYES: PERRLA, EOMI ENT: Nares clear. Mucous membranes moist. Oropharynx without tonsillar hypertrophy exudate or other lesions. NECK: Supple. No nuchal rigidity. CHEST: No respiratory distress. Clear to auscultation, no adventitious breath sounds. HEART: Regular rate and rhythm. No murmur heard. Normal peripheral pulses. ABDOMEN: Normal active bowel sounds. Generalized abdominal tenderness without rebound or guarding. No overlying skin changes. No CVA tenderness. EXTREMITIES: Normal range of motion. No edema. SKIN: Warm, dry, no rash. NEURO: No focal deficits. Alert and oriented x3. Cranial nerves II through XII intact. Strength 5/5 in BUE and BLE.. No pronator drift. Normal [id number]. PSYCH: Normal mood and affect. Course Vital Signs Vital signs: Vital Signs Temperature 97.4 F L 05/15/23 20:13 Pulse Rate 95 05/15/23 20:13 Respiratory Rate 16 05/15/23 20:13 Blood Pressure 133/67 05/15/23 20:13 Pulse Oximetry 99 05/15/23 20:13 Oxygen Delivery Room Air 05/15/23 20:13 Temperature 97.4 F L 05/15/23 20:13 Pulse Rate 95 05/15/23 20:13 Respiratory Rate 16 05/15/23 20:13 Blood Pressure 133/67 05/15/23 20:13 Pulse Oximetry 99 05/15/23 20:13 Oxygen Delivery Room Air 05/15/23 20:13 MDM - Nausea/Vomiting/Diarrhea MDM Narrative Medical decision making narrative: 42-year-old female reports for evaluation for abdominal pain, nausea, vomiting, diarrhea, headache and a cough since yesterday. Patient is well-appearing
[2023-05-15] MEDS: SODIUM CHLORIDE 0.9% IV 1,000 ML 999 ML IV CONT (21:01)
[2023-05-15] MEDS: KETOROLAC 30 MG/ML VIAL (*BKC) IV PUSH (21:02)
[2023-05-15] MEDS: diphenhydrAMINE HCl INJ 50 MG/ML VIAL 25 MG IV PUSH (21:02)
[2023-05-15] MEDS: PROCHLORPERAZINE EDISYLATE 10 MG/2 ML VIAL IV PUSH (21:03)
[2023-05-15 21:05] LABS: Basophils Absolute Auto 0.1 K/mm3 (0.0-0.1); Basophils Percent Auto 0.4 % (0.2-1.2); Eosinophils Absolute Auto 0.1 K/mm3 (0-0.3); Eosinophils Percent Auto 0.7 % (0-4.4); Hematocrit 39.2 % (37.0-47.0); Hemoglobin 13.3 g/dL (12.0-15.0); Immature Granulocyte Percent A 0.7 % (0-0.5); Lymphocytes Absolute Auto 2.34 K/mm3 (0.9-3.2); Lymphocytes Percent Auto 17.2 % (18.3-44.2); Mean Corpuscular HGB Conc 33.9 g/dl (32-36); Mean Corpuscular Hemoglobin 29.2 pg (26-34); Mean Platelet Volume 10.4 fl (7.4-10.4); Monocytes Absolute Auto 1.3 K/mm3 (0.1-0.6); Monocytes Percent Auto 9.3 % (2.6-8.5); Neutrophils Absolute Auto 9.7 K/mm3 (1.3-6.7); Neutrophils Percent Auto 71.7 % (45.5-73.1); Platelet Count Result 265 k/mm3 (150-375); Red Blood Count 4.56 M/mm3 (4.2-5.4); Red Cell Distribution Width 13.4 % (11.5-14.5); White Blood Count 13.6 K/mm3 (4.5-10.0)
[2023-05-15 21:07] LABS: Appearance Urine Clear (Clear); Bilirubin Urine Negative (Negative); Blood Urine Negative (Negative); Color Urine Yellow (Yellow); Glucose Urine UA Negative (Negative); Ketones Urine Negative (Negative); Leukocyte Esterase Ur Negative LEU/UL (Negative); Nitrate Urine Negative (Negative); Protein Urine Negative (Negative); Specific Grav Ur 1.008 (1.001-1.035); Urobilinogen Urine 0.2 mg/dL (<2.0)
[2023-05-15 21:10] LABS: Add Urine Microscopic? NO
[2023-05-15 21:24] LABS: Alanine Aminotransferase 24 U/L (6-35); Albumin Level 4.1 g/dL (3.5-5.1); Alkaline Phosphatase 78 U/L (38-126); Anion Gap 7 mmol/L (8-16); Aspartate Amino Transferase 20 U/L (14-36); Bilirubin,Total 0.5 mg/dL (0.2-1.3); Blood Urea Nitrogen 7 mg/dL (7-17); Calcium 8.7 mg/dL (8.4-10.2); Carbon Dioxide 23 mmol/L (22-30); Chloride 104 mmol/L (98-107); Estimated CRCL calculation 108 ml/min; Estimated Glomerular Filt Rate > 60; Glucose 101 mg/dL (65-110); Lipase 103 U/L (23-300); Potassium 3.7 mmol/L (3.4-5.0); Sodium 134 mmol/L (137-145)
[2023-05-15 21:42] LABS: Influenza A QL RT-PCR Negative (Negative); Influenza B QL RT-PCR Negative (Negative); SARS-CoV-2 RNA PCR Negative (Negative)
== END 2023-05-15 23:49 | disposition home or self-care (01) ==
PROVIDERS: Emergency Provider Physician Assistant
DX: K52.9 Noninfective gastroenteritis and colitis, unspecified (principal); N83.201 Unspecified ovarian cyst, right side; Z20.822 Contact with and (suspected) exposure to COVID-19; F17.210 Nicotine dependence, cigarettes, uncomplicated; Z90.49 Acquired absence of other specified parts of digestive tract
CPT/HCPCS: 36415; 70450; 71045; 74177; 80053; 81003; 81025; 83690; 85025; 87636; 96361; 96374; 96375; 99284; J0780; J1200; J1885; J7030; Q9967

== ENCOUNTER 2023-05-19 07:10 | Emergency (ER) | payer OTHER, SELFPAY ==
--- NOTE | ~2023-05-19 | CT_ITS ---
EXAMINATION: CT abdomen pelvis w con DATE: 05/19/2023 09:17 INDICATION: Right lower quadrant abdominal pain. TECHNIQUE: Computed tomography (CT) of the abdomen and pelvis was performed with 100 mL Omnipaque 350 intravenous contrast. Automated exposure control and iterative reconstruction technique were employe d. The dose-length product was 1031.32 mGy-cm. COMPARISON: CT abdomen and pelvis 05/15/2023, 11/01/19 FINDINGS: The visualized portions of the lung bases demonstrate centrilobular nodules in the lower lo bes, consistent with pneumonia. No pleural effusion. The heart size is normal. No pericardial effusio n. The liver and spleen are normal. There are changes of cholecystectomy. The pancreas, adrenal gland s, and kidneys are normal. There are no dilated loops of bowel. The appendix is normal. There is a 3. 6 cm cyst in right ovary. There is a small right inguinal hernia containing fat. There are no patholo gically enlarged lymph nodes. There is no free intraperitoneal fluid. There is severe lumbar spondylo sis. There is mild thoracic spondylosis. IMPRESSION: 1. 3.6 cm cyst in right ovary, likely a follicular cyst. 2. Bilateral lower lobe pneumonia. 3. Right inguinal hernia containing fat. Reviewed, dictated and finalized at location A.
--- NOTE | ~2023-05-19 | US_ITS ---
EXAMINATION: US pelvic complete w TV DATE: 05/19/2023 10:20 INDICATION: Right lower quadrant abdominal pain. Right ovarian cyst. TECHNIQUE: Multiple transabdominal and endovaginal sonographic images of the pelvis were obtained. COMPARISON: CT dated 05/19/2023 FINDINGS: The retroverted uterus measures 8.0 x 4.2 x 6.2 cm. The endometrial complex measures 4 mm in thickne ss. The right ovary measures 3.8 x 3.7 x 3.7 cm. 3.3 cm simple appearing anechoic right ovarian cyst. Vascular flow with arterial and venous waveforms identified in the right ovary on color Doppler. The left ovary was unable to be visualized due to shadowing bowel gas. It appeared normal with a 9 mm fo llicle, normal enhancement and no evident twisting of the vessels extending to the left ovary on the prior CT. There is no free fluid in the pelvis. IMPRESSION: 1. 3.3 cm simple appearing right ovarian cyst with vascular flow with arterial and venous waveforms i dentified in the right ovary. Reviewed, dictated and finalized at location A. IMPRESSION: 1. 3.3 cm simple appearing right ovarian cyst with vascular flow with arterial and venous waveforms identified in the right ovary.
[2023-05-19 07:15] VITALS: BP 137/88; PULSE 91; RESP 18; TEMP 36.6; O2SAT 97
[2023-05-19 07:39] LABS: Basophils Absolute Auto 0.1 K/mm3 (0.0-0.1); Basophils Percent Auto 0.4 % (0.2-1.2); Eosinophils Absolute Auto 0.2 K/mm3 (0-0.3); Eosinophils Percent Auto 1.3 % (0-4.4); Hematocrit 40.3 % (37.0-47.0); Hemoglobin 13.3 g/dL (12.0-15.0); Immature Granulocyte Absolute 0.07 K/mm3 (0.00-0.031); Immature Granulocyte Percent A 0.6 % (0-0.5); Lymphocytes Absolute Auto 1.74 K/mm3 (0.9-3.2); Lymphocytes Percent Auto 15.1 % (18.3-44.2); Mean Corpuscular Hemoglobin 28.6 pg (26-34); Mean Corpuscular Volume 86.7 fl (80-100); Mean Platelet Volume 9.9 fl (7.4-10.4); Monocytes Absolute Auto 1.2 K/mm3 (0.1-0.6); Monocytes Percent Auto 10.1 % (2.6-8.5); Neutrophils Absolute Auto 8.4 K/mm3 (1.3-6.7); Neutrophils Percent Auto 72.5 % (45.5-73.1); Platelet Count Result 251 k/mm3 (150-375); Red Blood Count 4.65 M/mm3 (4.2-5.4); Red Cell Distribution Width 13.2 % (11.5-14.5); White Blood Count 11.5 K/mm3 (4.5-10.0)
[2023-05-19 07:53] LABS: Alanine Aminotransferase 23 U/L (6-35); Alkaline Phosphatase 73 U/L (38-126); Anion Gap 11 mmol/L (8-16); Aspartate Amino Transferase 23 U/L (14-36); Bilirubin,Total 0.2 mg/dL (0.2-1.3); Blood Urea Nitrogen 7 mg/dL (7-17); Calcium 8.3 mg/dL (8.4-10.2); Carbon Dioxide 23 mmol/L (22-30); Chloride 102 mmol/L (98-107); Estimated CRCL calculation 108 ml/min; Estimated Glomerular Filt Rate > 60; Glucose 124 mg/dL (65-110); Lipase 73 U/L (23-300); Potassium 3.6 mmol/L (3.4-5.0); Sodium 136 mmol/L (137-145)
[2023-05-19 09:02] VITALS: BP 131/91; PULSE 83; RESP 21; O2SAT 100
[2023-05-19 09:19] LABS: Appearance Urine Clear (Clear); Bacteria Urine None Seen /hpf; Bilirubin Urine Negative (Negative); Blood Urine 3+ (Negative); Color Urine Dark Yellow (Yellow); Glucose Urine UA Negative (Negative); Ketones Urine Trace mg/dL (Negative); Leukocyte Esterase Ur Negative LEU/UL (Negative); Nitrate Urine Negative (Negative); Non Pathogenic Casts 0-2; Protein Urine Trace mg/dL (Negative); RBC Urine 51-100 /hpf (0-2); Specific Grav Ur 1.029 (1.001-1.035); Squamous Epithelial Cell Urine Occasional /hpf (Few); WBC Urine 0-5 /hpf; pH Urine 5.5 (5.0-9.0)
[2023-05-19 09:25] LABS: Add Urine Microscopic? YES
[2023-05-19] MEDS: SODIUM CHLORIDE 0.9% IV 2,000 ML 999 ML IV CONT (10:08)
[2023-05-19] MEDS: ONDANSETRON INJ 4 MG/2 ML VIAL IV PUSH (10:08)
[2023-05-19] MEDS: MORPHINE SULFATE (*CRX) 4 MG/ML INJ IV PUSH (10:09)
[2023-05-19 10:41] LABS: Lactic Acid Reflex 0.7 mmol/L (0.7-2.0)
--- NOTE | 2023-05-19 11:41 | ED.ABDPAIN ---
HPI - Abdominal Pain General Chief Complaint: Abdominal Pain Stated Complaint: abd pain/eye twitching Time Seen by Provider: 05/19/23 08:47 History of Present Illness HPI narrative: This is a 42-year-old female, with past history of cholecystectomy, who presents to the emergency department complaining of right lower quadrant abdominal pain. The patient states she was seen in this emergency department 4 days ago with similar pain. At the time CT was not concerning for acute intra-abdominal process aside from ovarian cyst. The patient states in the last 2 days, she started her menstrual cycle with worsening of her pain from 5/10 to 8/10. The pain is sharp, located in the right lower quadrant and does not radiate. It is aggravated with movement. She complains of associated nausea and intermittent, nonbloody vomiting. She has no other complaints at this time. Related Data Home Medications Medication Instructions Recorded Confirmed diclofenac sodium 50 mg mg PO 08/10/22 tablet,delayed release methocarbamol 750 mg tablet mg 08/10/22 Allergies Allergy/AdvReac Type Severity Reaction Status Date / Time No Known Allergies Allergy Mild Verified 04/13/23 10:25 Review of Systems Review of Systems: CONSTITUTIONAL: Denies fever, chills, or sweats. CARDIOVASCULAR: Denies chest pain, palpitations, or edema. RESPIRATORY: Denies cough or dyspnea. GASTROINTESTINAL: Right lower quadrant abdominal pain, nausea and nonbloody vomiting denies diarrhea. GENITOURINARY: Denies dysuria or hematuria. SKIN: Denies rash or itching. MUSCULOSKELETAL: Denies back pain, joint pain, or myalgia. NEUROLOGIC: Denies headache, numbness, dizziness, or weakness. PSYCHIATRIC: Denies anxiety or depression. [facility] Past Medical History Medical History Chronic back pain Surgical History Surgical History History of cholecystectomy Hx of right knee surgery Hx of tubal ligation Family History Family History Mother Family history of bipolar disorder Family history of irritable bowel syndrome Father Hypertension Family history of gastrointestinal disorder Social History Social History Smoking packs per day: 0.5 Smoking cigarettes per day: 10.0 Smoking status: Current every day smoker Tobacco type: cigarettes Alcohol intake: current Substance use: never Exam Narrative: GENERAL: Well-developed, well-nourished, in mild distress due to pain HEAD: Normocephalic, atraumatic. EYES: PERRLA and EOMI. CHEST: Clear to auscultation. No respiratory distress. No wheezes rales or rhonchi HEART: Regular rate and rhythm. No murmur heard. Normal peripheral pulses. ABDOMEN: Soft, tender palpation in the right lower quadrant, without rebound though some passive guarding, nondistended, normal active bowel sounds. No CVA tenderness to palpation EXTREMITIES: Normal range of motion. No edema. SKIN: Warm, dry, no rash. NEURO: Alert and oriented x3. Moving all 4 limbs purposefully. PSYCH: Normal mood and affect. Course Course Emergency Course: 11:51 - CT abdomen pelvis demonstrates a 3.6 cm right ovarian cyst. Ultrasound is not concerning for torsion. On reevaluation, the patient states her pain is improved though has somewhat returned. CBC demonstrates mildly elevated white blood cell count of 11.5. Chemistry is demonstrate mild hypocalcemia of 8.3 and hyponatremia of 136 but is otherwise unremarkable. UA not concerning for UTI. Will discharge with pain medications. Discussed return and emergency precautions including signs/symptoms of acute abdomen and intractable vomiting. The patient voiced understanding and is comfortable with the plan. All questions answered to her satisfaction. Vital Signs Vital signs:
[2023-05-19 12:01] VITALS: BP 115/83; PULSE 83; RESP 13; O2SAT 98
[2023-05-19] MEDS: oxyCODONE/ACETAMINOPHEN (*CRX) 5-325 MG TABLET 1 TABLET PO (12:01)
== END 2023-05-19 12:25 | disposition home or self-care (01) ==
PROVIDERS: Emergency Provider Preventive Medicine Aerospace Medicine
DX: N83.291 Other ovarian cyst, right side (principal); F17.210 Nicotine dependence, cigarettes, uncomplicated; Z90.49 Acquired absence of other specified parts of digestive tract; K40.90 Unilateral inguinal hernia, without obstruction or gangrene, not specified as recurrent; J18.9 Pneumonia, unspecified organism
CPT/HCPCS: 36415; 74177; 76830; 76856; 80053; 81001; 81025; 83605; 83690; 85025; 96361; 96374; 96375; 99284; A9270; J2270; J2405; J7030; Q9967

== ENCOUNTER 2025-08-04 16:45 | Emergency (ER) | payer BC, SELFPAY ==
--- NOTE | ~2025-08-04 | CT_ITS ---
EXAMINATION: CT facial bones w con DATE: 08/04/2025 19:10 INDICATION: Submandibular swelling. Dentalgia. TECHNIQUE: Computed tomography (CT) of the facial bones and maxillofacial region was performed with 75 mL Omnipaque 350 intravenous contrast. Automated exposure control and iterative reconstruction technique were employed. The dose-length product was 344.42 mGy-cm. COMPARISON: None. FINDINGS: There is mild right submandibular lymphadenopathy, likely reactive. There is fat stranding in the submandibular region, consistent with inflammation. The orbits are normal. There is minimal mucosal thickening in the paranasal sinuses. There is a left mastoid effusion. There is a carious lesion of tooth 27 with periapical lucencies. There are carious lesions of 30, 31, and 32. There are periapical lucencies at 31 and 32. IMPRESSION: 1. Dental disease. 2. Mild right submandibular lymphadenopathy, likely reactive. Reviewed, dictated and finalized at location E. [employer]
[2025-08-04 16:51] VITALS: PULSE 85; RESP 17; TEMP 36.4; O2SAT 100
[2025-08-04] MEDS: AMPICILLIN SODIUM/SULBACTAM 3 GM in SODIUM CHLORIDE 0.9% IV 100 ML 200 ML IVPB (17:41)
[2025-08-04] MEDS: oxyCODONE HCL (*CRX) 5 MG TAB IR PO (17:41)
--- NOTE | 2025-08-04 17:41 | ED_ITS ---
HPI - Dental/Oral General Chief complaint: Dental/Oral Stated complaint: toothache Time Seen by Provider: 08/04/25 16:52 Source: patient Mode of arrival: ambulatory Limitations: no limitations History of Present Illness HPI Narrative: This is a 44 year old female that presents to the ER for dentalgia. Ongoing since last night. Reports she was seen at another ER earlier today. Started on an antibiotic, unsure which one. Reports worsening swelling and pain since which prompted her to be seen. Denies fevers. MD Complaint: tooth pain Location: Tooth # (29) Related Data Home Medications ?Medication ?Instructions ?Recorded ?Confirmed ?Last Taken ?Type diclofenac sodium 50 mg mg PO 08/10/22 Unknown Hist ory tablet,delayed release methocarbamol 750 mg tablet mg 08/10/22 Unknown Histo ry Allergies Allergy/AdvReac Type Severity Reaction Status Date / Time No Known Allergies Allergy Mild Verified 08/04/25 16:46 Review of Systems 2 Review of Systems: All systems reviewed & are unremarkable except as noted in HPI and below PMFSH Past Medical History Medical History (Updated 08/04/25 @ 21:40 by Soco Corona PA-C) Chronic back pain Surgical History Surgical History Hx of right knee surgery History of cholecystectomy Hx of tubal ligation Family History Family History Mother Family history of bipolar disorder Family history of irritable bowel syndrome Father Hypertension Family history of gastrointestinal disorder Social History Social History Smoking packs per day: 0.5 Smoking cigarettes per day: 10.0 Smoking status: Current every day smoker Tobacco type: cigarettes Alcohol intake: current Substance use: never Exam 2 Narrative: GENERAL: Well-appearing, well-nourished, and in no acute distress. HEAD: Normocephalic, atraumatic. EYES: EOMI. ENT: Nares clear, no rhinorrhea or epistaxis. Mucous membranes moist. Oropharynx without tonsillar hypertrophy exudate or other lesions. Poor dentition. No trismus. No focal abscess noted in the mouth. Floor of mouth is soft NECK: Right tender anterior cervical adenopathy, swelling in the right submandibular region. No overlying redness CHEST: Clear to auscultation. No respiratory distress. No wheezes rales or rhonchi HEART: Regular rate and rhythm. No murmur heard. Normal peripheral pulses. EXTREMITIES: Normal range of motion. No edema. SKIN: Warm, dry, no rash. NEURO: No focal deficits. Alert and oriented x3. PSYCH: Normal mood and affect Course Vital Signs Vital signs: Vital Signs Temperature 97.6 F 08/04/25 16:51 Pulse Rate 85 08/04/25 16:51 Respiratory Rate 17 08/04/25 16:51 Pulse Oximetry 100 08/04/25 16:51 Oxygen Delivery Room Air 08/04/25 16:51 Temperature 97.6 F 08/04/25 16:51 Pulse Rate 85 08/04/25 16:51 Respiratory Rate 17 08/04/25 16:51 Pulse Oximetry 100 08/04/25 16:51 Oxygen Delivery Room Air 08/04/25 16:51 MDM - Dental/Oral MDM Narrative Medical decision making narrative: Patient presents the emergency department for dentalgia, facial swelling. She is afebrile and nontoxic appearing. Her vitals are stable. CBC with leukocytosis to 12. Inflammatory markers are mildly elevated. CT facial bones shows swelling around the parotid gland. No focal abscess. No trismus. Floor of mouth is soft. Patient given 1st dose of antibiotics IV, will be continued on Augmentin. She was given strict return precautions Differential Diagnosis Differential diagnosis: Likely toothache, dental abscess and other (parotitis) Lab Data 08/04/25 17:43 08/04/25 17:43 Labs: Lab Results 08/04/25 Range/Units 17:43 WBC 12.0 H (4.5-10.0) K/mm3 RBC 4.53 (4.2-5.4) M/mm3 Hgb 13.0 (12.0-15.0) g/dL Hct 38.6 (37.0-47.0) % MCV 85.2 (80-100) fl MCH 28.7 (26-34) pg MCHC 33.7 (32-36) g/dl RDW 14.2 (11.5-14.5) % Plt Count 254 (150-375) k/mm3 MPV 10.4 (7.4-10.4) fl Immature Gran % (Auto) 0.3 (0-0.5) % Neut % (Auto) 66.9 (45.5-73.1) % Lymph % (Auto) 24.0 (18.3-44.2) % Harding % (Auto) 6.5 (2.6-8.5) % Eos % (Auto) 2.0 (0-4.4) % Baso % (Auto) 0.3 (0.2-1.2) % Lymph # (Auto) 2.88 (0.9-3.2) K/mm3 Harding # (Auto) 0.8 H (0.1-0.6) K/mm3 Eos # (Auto) 0.2 (0-0.3) K/mm3 Baso # (Auto) 0.0 (0.0-0.1) K/mm3 Abs Immat Gran (auto) 0.04 H (0.00-0.031) K/mm3 Absolute Neuts (auto) 8.0 H (1.3-6.7) K/mm3 Absolute Nucleated RBC 0.000 (0.0-0.012) K/mm3 Nucleated RBC % 0.0 (0.0-0.2) % ESR 28 H (0-20) mm/hr Sodium 134 L (137-145) mmol/L Potassium 3.7 (3.4-5.0) mmol/L Chloride 102 (98-107) mmol/L Carbon Dioxide 25 (22-30) mmol/L Anion Gap 7 (4-12) mmol/L BUN 11 (7-17) mg/dL Creatinine 0.72 (0.7-1.0) mg/dL Estim Creat Clear Calc 103 ml/min Estimated GFR > 60 (59 - ) Glucose 95 (65-110) mg/dL Calcium 8.9 (8.4-10.2) mg/dL C-Reactive Protein 5.2 H (<1.0) mg/dL Imaging Data Radiologist's impression: CT facial bones: Right submandibular right parotid gland edema/stranding suggesting underlying infection. Associated right cervical adenopathy. Multiple dental caries and periapical disease. No abscess Critical Care Time Critical Care Time Critical Care Time: No Discharge Plan Discharge Clinical Impression: Acute parotitis Patient Disposition: Home Condition: Stable Instructions: Antibiotic Form Additional Instructions: Return to the emergency department if you experience fevers, increasing swelling, difficulty swallowing, you are not able to open your mouth, or any other symptoms that are concerning to you Take oral antibiotics as prescribed Follow up with ENT Patient Language: Cameroonian Prescriptions: New amoxicillin-pot clavulanate 875-125 mg tablet 1 tablet PO Q12H 10 Days Qty: 20 0RF hydrocodone-acetaminophen 5-325 mg tablet 1 tablet PO Q6H PRN (Reason: pain) Qty: 10 0RF No Action simethicone 125 mg capsule 125 mg PO QID Qty: 20 0RF Rx Instructions: administer after meals and at bedtime dicyclomine 20 mg tablet 20 mg PO QID Qty: 20 0RF ondansetron 4 mg tablet,disintegrating 4 mg PO Q6H PRN (Reason: nausea and vomiting) Qty: 10 0RF ondansetron 4 mg tablet,disintegrating 4 mg PO Q6H PRN (Reason: nausea and vomiting) Qty: 10 0RF naproxen 500 mg tablet 500 mg PO BID Qty: 20 0RF cyclobenzaprine 10 mg tablet 10 mg PO TID PRN (Reason: muscle spasm) Qty: 14 0RF methocarbamol 750 mg tablet diclofenac sodium 50 mg tablet,delayed release (DR/EC) PO orphenadrine citrate 100 mg tablet extended release 100 mg PO Q12H PRN (Reason: spasms) Qty: 20 0RF diclofenac potassium 50 mg tablet 50 mg PO TID PRN (Reason: pain) Qty: 30 0RF prednisone 20 mg tablet 40 mg PO DAILY 5 Days Qty: 10 0RF hydrocodone-acetaminophen 5-325 mg tablet 1 tablet PO Q6H PRN (Reason: pain) Qty: 14 0RF diazepam [Valium] 5 mg tablet 5 mg PO TID PRN (Reason: muscle spasm) Qty: 10 0RF ondansetron 4 mg tablet,disintegrating 4 mg PO Q8H Qty: 14 0RF famotidine [Pepcid] 20 mg tablet 20 mg PO BID 15 Days Qty: 30 0RF sucralfate 100 mg/mL suspension 2 gm RECTAL DAILY 20 Days Qty: 400 0RF oxycodone-acetaminophen [Endocet] 5-325 mg tablet 1 tablet PO Q8H PRN (Reason: pain) Qty: 12 0RF ondansetron 4 mg tablet,disintegrating 4 mg PO Q8H PRN (Reason: nausea and vomiting) Qty: 12 0RF Follow-up/Referrals: Lucian Delaney MD [Physician, Ear, Nose, Throat] UNKNOWN,DOCTOR [Primary Care Provider]
[2025-08-04 17:49] LABS: Hematocrit 38.6 % (37.0-47.0); Hemoglobin 13.0 g/dL (12.0-15.0); Immature Granulocyte Percent A 0.3 % (0-0.5); Lymphocytes Absolute Auto 2.88 K/mm3 (0.9-3.2); Mean Corpuscular HGB Conc 33.7 g/dl (32-36); Mean Corpuscular Hemoglobin 28.7 pg (26-34); Mean Corpuscular Volume 85.2 fl (80-100); Nucleated Red Blood Cells Absolute Auto 0.000 K/mm3 (0.0-0.012); Nucleated Red Blood Cells Perc 0.0 % (0.0-0.2); Platelet Count Result 254 k/mm3 (150-375); Red Blood Count 4.53 M/mm3 (4.2-5.4); White Blood Count 12.0 K/mm3 (4.5-10.0)
[2025-08-04] MEDS: ONDANSETRON INJ 4 MG/2 ML VIAL IV PUSH (17:51)
[2025-08-04 18:06] LABS: Anion Gap 7 mmol/L (4-12); Blood Urea Nitrogen 11 mg/dL (7-17); CRP 5.2 mg/dL (<1.0); Calcium 8.9 mg/dL (8.4-10.2); Carbon Dioxide 25 mmol/L (22-30); Chloride 102 mmol/L (98-107); Estimated CRCL calculation 103 ml/min; Estimated Glomerular Filt Rate > 60; Glucose 95 mg/dL (65-110); Potassium 3.7 mmol/L (3.4-5.0); Sodium 134 mmol/L (137-145)
[2025-08-04] MEDS: KETOROLAC 15 MG/ML VIAL (*BKC) IV PUSH (20:45)
[2025-08-04] MEDS: ACETAMINOPHEN 500 MG TABLET 1000 MG PO (20:46)
[2025-08-04 22:10] VITALS: BP 148/98; PULSE 64; RESP 18; O2SAT 99
== END 2025-08-04 22:11 | disposition home or self-care (01) ==
PROVIDERS: Emergency Provider Physician Assistant
DX: K11.21 Acute sialoadenitis (principal); F17.210 Nicotine dependence, cigarettes, uncomplicated; Z90.49 Acquired absence of other specified parts of digestive tract
CPT/HCPCS: 36415; 70487; 80048; 85025; 85652; 86140; 96365; 96375; 99284; A9270; J0295; J1885; J2405; Q9967